=== PATIENT | male | born 1995 | race Two or more races ===

== ENCOUNTER 2023-01-25 01:13 | Emergency (ER) | payer MEDICAID, OTHER ==
[~2023-01-25] VITALS: Ht 172.7 cm; Wt 77.1 kg
[2023-01-25 03:33] VITALS: BP 130/86; TEMP 98; O2SAT 98
== END 2023-01-25 03:50 | disposition home or self-care (01) ==
LOC: ER 01:18
DX: M79.18 Myalgia, other site (principal); Z88.1 Allergy status to other antibiotic agents

== ENCOUNTER 2023-12-10 22:05 | Emergency (ER) | payer OTHER ==
[~2023-12-10] VITALS: Ht 170.2 cm; Wt 63.5 kg
[2023-12-10 23:43] VITALS: BP 127/82; TEMP 98.5; O2SAT 99
[2023-12-11] MEDS ORDERED: TRAM-351 PO (00:18)
== END 2023-12-11 00:35 | disposition home or self-care (01) ==
LOC: ER 22:06
DX: L72.9 Follicular cyst of the skin and subcutaneous tissue, unspecified (principal); Z90.49 Acquired absence of other specified parts of digestive tract; Z88.6 Allergy status to analgesic agent